=== PATIENT | male | born 1985 | race Caucasian/White ===

== ENCOUNTER 2024-08-18 14:44 | Emergency (ER) | payer OTHER ==
[~2024-08-18] VITALS: Ht 182.9 cm; Wt 88.9 kg
[2024-08-18 15:55] LABS: CALCIUM, SERUM 9.2 mg/dL (8.5-10.1); CREATININE 0.9 mg/dL (0.6-1.3); POTASSIUM 3.5 mmol/L (3.5-5.1)
[2024-08-18 15:58] LABS: BASOPHILS % (AUTO) 0.4 % (0.0-2.0); EOSINOPHILS # (AUTO) 0.2 K/uL (0.0-0.7); EOSINOPHILS % (AUTO) 2.8 % (0.0-6.0); HEMATOCRIT 48 % (39-51); HEMOGLOBIN 16.2 g/dL (13.5-17.5); LYMPHOCYTES % (AUTO) 14.2 % (20.0-44.0); MEAN CORPUSCULAR HEMOGLOBIN 31 PG (26.0-33.0); MEAN CORPUSCULAR HGB CONC 34 g/dl (31.0-36.0); MEAN CORPUSCULAR VOLUME 90 fL (80-96); MONOCYTES # (AUTO) 0.5 K/uL (0.1-1.30); MONOCYTES % (AUTO) 6.8 % (2.0-12.0); NEUTROPHILS # (AUTO) 5.2 K/uL (1.8-8.9); NEUTROPHILS % (AUTO) 75.8 % (43.0-81.0); PLATELET COUNT (AUTO) 212 K/uL (150-450); RED BLOOD CELL COUNT(AUTO) 5.32 MIL/uL (4.5-6.0); RED CELL DISTRIBUTION WIDTH 12.4 % (11.5-15.0); WHITE BLOOD COUNT (AUTO) 6.8 K/uL (4.3-11.0)
[2024-08-18] MEDS ORDERED: MULT-213 PO (16:29)
[2024-08-18] MEDS ORDERED: BUPR150T10 PO (16:29)
[2024-08-18] MEDS ORDERED: ESCI10TA PO (16:29)
[2024-08-18] MEDS ORDERED: LEVO15TA5 PO (16:29)
[2024-08-18 17:02] VITALS: BP 142/90; TEMP 97.5; O2SAT 98
== END 2024-08-18 17:03 | disposition home or self-care (01) ==
LOC: ER 14:44
DX: H53.9 Unspecified visual disturbance (principal); F32.A Depression, unspecified; Z79.899 Other long term (current) drug therapy; Z86.73 Personal history of transient ischemic attack (TIA), and cerebral infarction without residual deficits
CPT/HCPCS: 36415; 80048-TC; 83735-TC; 84484-TC; 85025-TC